=== PATIENT | female | born 1955 | race Asian ===

== ENCOUNTER 2018-02-01 18:00 | Emergency (ER) | payer OTHER ==
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
[2018-02-01 20:44] VITALS: BP 119/57
== END 2018-02-01 20:44 | disposition home or self-care (01) ==
LOC: ED 18:00
DX: S20.211A Contusion of right front wall of thorax, initial encounter (principal); S20.311A Abrasion of right front wall of thorax, initial encounter; V43.52XA Car driver injured in collision with other type car in traffic accident, initial encounter; Y92.410 Unspecified street and highway as the place of occurrence of the external cause; I10 Essential (primary) hypertension; E11.9 Type 2 diabetes mellitus without complications; Z79.84 Long term (current) use of oral hypoglycemic drugs; Z79.82 Long term (current) use of aspirin
CPT/HCPCS: 71045; 99283

== ENCOUNTER 2018-08-02 08:39 | Outpatient (CLI) | payer OTHER ==
[2018-08-02 09:10] LABS: BASOPHILS # (AUTO) 0.1 10^3/uL (0.0-0.1); EOSINOPHILS # (AUTO) 0.3 10^3/uL (0.0-0.7); EOSINOPHILS % (AUTO) 3.7 %; LYMPHOCYTES # (AUTO) 1.9 10^3/uL (1.5-3.5); LYMPHOCYTES % (AUTO) 24.5 %; MEAN CORPUSCULAR HEMOGLOBIN 27.7 pg (27.0-31.0); MEAN CORPUSCULAR HGB CONC 32.7 g/dL (32.0-36.0); MEAN CORPUSCULAR VOLUME 84.6 fL (81.0-99.0); MEAN PLATELET VOLUME 9.1 fL (7.9-10.8); MONOCYTES # (AUTO) 0.7 10^3/uL (0.0-1.0); MONOCYTES % (AUTO) 9.5 %; NEUTROPHILS # (AUTO) 4.6 10^3/uL (1.5-6.6); NEUTROPHILS % (AUTO) 61.3 %; PLT - PLATELET COUNT 202 10^3/uL (130-450); RED BLOOD COUNT 4.68 10^6/uL (4.20-5.40); RED CELL DISTRIBUTION WIDTH 13.8 % (12.0-15.0); WHITE BLOOD COUNT 7.6 x10^3/uL (4.8-10.8)
[2018-08-02 09:21] LABS: ALBUMIN 4.2 g/dL (3.2-5.5); ALBUMIN/GLOBULIN RATIO 1.4 (1.0-2.2); BILIRUBIN,TOTAL 0.6 mg/dL (0.2-1.0); CALCIUM 9.1 mg/dL (8.5-10.3); CREATININE 0.6 mg/dL (0.4-1.0); TOTAL PROTEIN 7.3 g/dL (6.7-8.2)
== END 2018-08-02 08:40 | disposition home or self-care (01) ==
LOC: LAB 08:39
PROVIDERS: ATTEND Internal Medicine Gastroenterology
DX: E11.9 Type 2 diabetes mellitus without complications (principal); I10 Essential (primary) hypertension
CPT/HCPCS: 36415; 80053; 85025; 93005

== ENCOUNTER 2018-08-23 06:08 | Day surgery (SDC) | payer OTHER ==
[2018-08-23] MEDS ORDERED: LACTATED RINGERS 1,000 ML IV ONE (06:36)
[2018-08-23] MEDS ORDERED: fentaNYL 250 MCG/5 ML VIAL IVP ONE (07:24)
[2018-08-23] MEDS ORDERED: MIDAZOLAM 2 MG/2 ML VIAL IVP ONE (07:24)
[2018-08-23 08:35] VITALS: BP 110/55
== END 2018-08-23 06:09 | disposition home or self-care (01) ==
LOC: SDS 06:08
PROVIDERS: ATTEND Internal Medicine Gastroenterology
PROC: 0DBN8ZZ Excision of Sigmoid Colon, Via Natural or Artificial Opening Endoscopic (ICD-10-PCS; 2018-08-23)
PROC: 0DBH8ZZ Excision of Cecum, Via Natural or Artificial Opening Endoscopic (ICD-10-PCS; principal; 2018-08-23 07:30)
DX: Z12.11 Encounter for screening for malignant neoplasm of colon (principal); D12.0 Benign neoplasm of cecum; E75.5 Other lipid storage disorders; K57.30 Diverticulosis of large intestine without perforation or abscess without bleeding; I10 Essential (primary) hypertension; E78.00 Pure hypercholesterolemia, unspecified; E11.9 Type 2 diabetes mellitus without complications; K76.0 Fatty (change of) liver, not elsewhere classified; F41.9 Anxiety disorder, unspecified; Z79.82 Long term (current) use of aspirin
CPT/HCPCS: 45380; J3010; J7120

== ENCOUNTER 2021-02-16 13:49 | Outpatient (CLI) | payer MEDICARE, OTHER ==
--- NOTE | 2021-02-16 17:42 | XRAY Report ---
PROCEDURE: Knee 3 View BILAT INDICATIONS: POSSIBLE ARTHRITIS OR MENISCUS PROBLEM TECHNIQUE: 3 views of the right and left knee(s) were acquired. COMPARISON: None. FINDINGS: Bones: No fractures or dislocations. No suspicious bony lesions. [id number] bilateral knee tr icompartmental osteoarthritis with marginal osteophytosis and slight joint space narrowing. Soft tissues: No joint effusion. No suspicious soft tissue calcifications. IMPRESSION: Mild to moderate bilateral knee osteophytosis. Reviewed by: Magdalena Santamaria MD, PhD on 02/16/2021 5:41 PM PDT Approved by: Magdalena Santamaria MD, PhD on 02/16/2021 5:41 PM PDT Station ID: [id number]
== END 2021-02-16 13:50 | disposition home or self-care (01) ==
LOC: DI.N 13:49
PROVIDERS: ATTEND Physician Assistant
DX: M25.561 Pain in right knee (principal); M25.562 Pain in left knee; M17.0 Bilateral primary osteoarthritis of knee; M25.762 Osteophyte, left knee; M25.761 Osteophyte, right knee

== ENCOUNTER 2023-12-14 06:06 | Day surgery (SDC) | payer MEDICARE, OTHER ==
[2023-12-14] MEDS: LACTATED RINGERS 1,000 ML IV ONE ×2 (06:40→07:55)
[2023-12-14] MEDS ORDERED: PROPOFOL 500 MG/50 ML 500 MG/50 ML VIAL ONE (07:12)
--- NOTE | 2023-12-14 07:25 | ANESTHESIA ---
Pre-Anesthesia VS, & Labs - Diagnosis hx of polyps - Procedure colonoscopy Vital Signs: Temp Pulse Resp BP Pulse Ox O2 Flow Rate 36.3 C L 57 L 18 142/63 H 98 12/14/23 06:50 12/14/23 06:50 12/14/23 06:50 12/14/23 06:50 12/14/23 06:50 Height: 5 ft Weight (kg): 55.7 kg Body Mass Index: 24.0 BMI Classification: Normal - NPO >8 hours - Is Patient ?: No - Lab Results Current Lab Results: Laboratory Tests 12/14/23 06:59: POC Whole Bld Glucose 133 H Home Medications and Allergies Aspirin [Aspir 81] 81 mg ORAL DAILY 06/11/15 Calcium Carbonate/Vitamin D3 [Calcium 600 + D Tablet] 1 tab ORAL BID 06/11/15 Glyburide 5 mg ORAL DAILY 06/11/15 Levothyroxine [Synthroid] 112 mcg ORAL DAILY 06/11/15 Loratadine [Claritin] 10 mg ORAL DAILY 06/11/15 Propranolol [Inderal] 40 mg ORAL BID 06/11/15 Simvastatin 20 mg ORAL DAILY 06/11/15 lisinopriL [Lisinopril] 10 mg ORAL DAILY 06/11/15 metFORMIN [Glucophage] 1 - 2 tab ORAL BID 06/11/15 Allergies/Adverse Reactions: Allergies Allergy/AdvReac Type Severity Reaction Status Date / Time No Known Drug Allergies Allergy Verified 12/14/23 06:57 Anes History & Medical History - Anesthetic History Anesthesia Complications: reports: No previous complications Family history of Anesthesia Complications: Denies Family history of Malignant Hyperthermia: Denies - Medical History Cardiovascular: reports: Hypertension, High cholesterol Pulmonary: reports: None Gastrointestinal: reports: None Urinary: reports: None Musculoskeletal: reports: Osteoarthritis Endocrine/Autoimmune: reports: Type 2 diabetes Skin: reports: None Smoking Status: Never smoker - Surgical History General: reports: Colonoscopy Eyes Ears Nose Throat (EENT): reports: Other Gynecologic: reports: Hysterectomy Exam General: Alert, Oriented x3, Cooperative Dental: WNL Mouth Openin Fingerbreadth Neck Mobility: Normal Mallampati classification: II Thyromental Distance: 4-6 cm Respiratory: Lungs clear Cardiovascular: Regular rate Plan Anesthesia Type: General, Total IV Consent for Procedure(s) Verified and Reviewed: Yes Code Status: Attempt Resuscitation ASA classification: 2-Mild systemic disease Is this case an emergency?: No
[2023-12-14 08:04] VITALS: O2SAT 99
[2023-12-14 08:24] VITALS: BP 108/52
== END 2023-12-14 06:07 | disposition home or self-care (01) ==
LOC: SDS 06:06
PROVIDERS: ATTEND Surgery
DX: Z12.11 Encounter for screening for malignant neoplasm of colon (principal); K57.30 Diverticulosis of large intestine without perforation or abscess without bleeding; E11.9 Type 2 diabetes mellitus without complications; I10 Essential (primary) hypertension; Z86.010 Personal history of colon polyps; Z79.84 Long term (current) use of oral hypoglycemic drugs
CPT/HCPCS: G0105; J7120

== ENCOUNTER 2024-02-27 13:37 | Outpatient (CLI) | payer MEDICARE, OTHER ==
--- NOTE | 2024-02-27 14:58 | DEXA Report ---
PROCEDURE: Dexa Spine and/or Hip INDICATIONS: POST MENOPAUSAL TECHNIQUE: Dual energy x-ray absorptiometry (DXA) was performed on a Tamtron System. Regions measur ed are the AP Spine, femoral neck, and if needed forearm. COMPARISON: None FINDINGS: Lumbar Spine: Bone Mineral Density: 0.982 g/cm/cm,T score: -1.6. Left Femoral Neck: Bone Mineral Density: 0.856 g/cm/cm, T score: -1.3. Left Hip: Bone Mineral Density: 0.906 g/cm/cm,T score: -0.8. (T score greater or equal to -1.0: NORMAL) (T score from -1.1 to -2.4: OSTEOPENIA) (T score less than or equal to -2.5 to: OSTEOPOROSIS) Impression: By WHO criteria, this patient has osteopenia most prominent in the lumbar spine. Patients with diagnosis of osteoporosis or osteopenia should have regular bone mineral density assess ment. For those eligible for Medicare, routine testing is allowed once every 2 years. Testing frequ ency can be increased for patients who have rapidly progressing disease or for those who are receivin g medical therapy to restore bone mass. Reviewed by: Vera Zayas MD on 02/27/2024 2:56 PM PDT Approved by: Vera Zayas MD on 02/27/2024 2:56 PM PDT Station ID: [id number]
== END 2024-02-27 13:38 | disposition home or self-care (01) ==
LOC: DI 13:37
PROVIDERS: ATTEND Student in an Organized Health Care Education/Training Program
DX: M85.89 Other specified disorders of bone density and structure, multiple sites (principal)